=== PATIENT | female | born 1935 | race Caucasian/White ===

== ENCOUNTER 2017-06-09 12:55 | Inpatient (IN) | payer MEDICARE, BC ==
[~2017-06-09] VITALS: Ht 147 cm; Wt 70.3 kg
[~2017-06-09 12:55] MED LIST: ACETAMINOPHEN-H1 TA2 PO; ASPIRIN81 M1 PO; CIPRO500 MG PO; CO Q-1010 MG PO; CRESTOR5 MG PO; DIOVAN80 M1 PO; DOXYCYCLINE100 M3 PO; FISH OIL PO; FOLIC ACID0.8 MG PO; MACROBID100 M1 PO; NIACIN PO; PREDNICOT10 MG PO; PYRIDIUM200 MG PO; SYNTHROID,LEVO75 MCG PO; ZETIA10 MG PO; Zofran4 MG PO; [UNRECOGNIZED DRUG - CODE] PO; [UNRECOGNIZED DRUG - OTHER] PO
[2017-06-09 12:58] VITALS: BP 132/65
[2017-06-09 14:00] LABS: BASO % 0.7 % (0.0-1.0); EOS # 0.1 10*3/uL (0.0-0.4); EOS % 1.8 % (1.0-4.0); HEMATOCRIT 40.7 % (37.0-47.0); HEMOGLOBIN 13.7 g/dl (12.0-16.0); LYMPH # 1.4 10*3/uL (1.3-4.4); LYMPH % 22.6 % (27.0-41.0); MEAN CELL VOLUME 92.9 fl (81.0-99.0); MEAN CORPUSCULAR HGB 31.3 pg (27.0-31.0); MEAN CORPUSCULAR HGB CONC 33.7 g/dl (33.0-37.0); MONO # 0.6 10*3/uL (0.1-1.0); MONO % 10.4 % (3.0-9.0); NEUT # 3.9 10*3/uL (2.3-7.9); NEUT % 64.3 % (47.0-73.0); PLATELET COUNT AUTOMATED 177 10*3/uL (130-400); RED BLOOD COUNT 4.38 10*6/uL (4.10-5.10); RED CELL DISTRI WIDTH 12.4 % (0-14.5); WHITE BLOOD COUNT 6.1 10*3/uL (4.8-10.8)
[2017-06-09 14:15] LABS: ACT PARTIAL THROMBO TIME 22.5 SECONDS (20.8-31.5); ALBUMIN 3.6 gm/dl (3.1-4.5); ALKALINE PHOSPHATASE 76 U/L (45-117); BUN 12 mg/dl (7-24); CHLORIDE 107 mmol/L (98-107); CREATININE 1.03 mg/dL (0.55-1.02); LIPASE 143 U/L (73-393); SGOT/AST 19 IU/L (3-35); SGPT/ALT 18 U/L (12-78); SODIUM 138 mmol/L (136-145); TOTAL PROTEIN 7.4 gm/dL (6.4-8.2); TROPONIN I 0.017 ng/ml (<0.045)
[2017-06-09 15:15] VITALS: BP 128/72
[2017-06-09 16:48] VITALS: BP 142/60
[2017-06-09 20:00] VITALS: BP 111/57
[2017-06-09 23:59] VITALS: BP 91/36
[2017-06-10 07:49] LABS: ALBUMIN 3.4 gm/dl (3.1-4.5); CREATININE 1.21 mg/dL (0.55-1.02); PHOSPHOROUS 2.8 mg/dL (2.5-4.9); POTASSIUM 4.1 mmol/L (3.5-5.1); TOTAL PROTEIN 7.4 gm/dL (6.4-8.2)
[2017-06-10 07:55] LABS: FREE T4 1.38 ng/dl (0.76-1.46); THYROID STIM HORMONE (HS) 0.006 uIU/ml (0.358-4.75)
[2017-06-10 08:00] VITALS: BP 127/74
[2017-06-10 08:04] LABS: BASO % 0.2 % (0.0-1.0); HEMATOCRIT 41.4 % (37.0-47.0); HEMOGLOBIN 13.8 g/dl (12.0-16.0); LYMPH % 20.1 % (27.0-41.0); MEAN CELL VOLUME 93.5 fl (81.0-99.0); MEAN CORPUSCULAR HGB 31.2 pg (27.0-31.0); MEAN CORPUSCULAR HGB CONC 33.3 g/dl (33.0-37.0); MEAN PLATELET VOLUME 10.1 fl (9.6-12.3); MONO # 0.3 10*3/uL (0.1-1.0); MONO % 5.2 % (3.0-9.0); NEUT # 3.8 10*3/uL (2.3-7.9); NEUT % 73.9 % (47.0-73.0); PLATELET COUNT AUTOMATED 179 10*3/uL (130-400); RED BLOOD COUNT 4.43 10*6/uL (4.10-5.10); RED CELL DISTRI WIDTH 12.5 % (0-14.5); WHITE BLOOD COUNT 5.2 10*3/uL (4.8-10.8)
[2017-06-10 12:00] VITALS: BP 98/54
[2017-06-10 16:00] VITALS: BP 95/70
[2017-06-10 20:00] VITALS: BP 100/49; BP 100/69
[2017-06-11] VITALS: BP 115/54
[2017-06-11 07:22] LABS: ALBUMIN 3.2 gm/dl (3.1-4.5); CREATININE 1.09 mg/dL (0.55-1.02); POTASSIUM 3.8 mmol/L (3.5-5.1)
[2017-06-11 07:24] LABS: PHOSPHOROUS 2.7 mg/dL (2.5-4.9)
[2017-06-11 08:00] VITALS: BP 149/68
[2017-06-11] MEDS ORDERED: Synthroid,Levo50 MCG PO (10:37)
[2017-06-11] MEDS ORDERED: MEDROL DOSEPAK4 MG PO (10:39)
== END 2017-06-11 11:18 | disposition home or self-care (01) | DRG 202 ==
LOC: ED 12:55 → 4E 15:23 → EDHOLD 15:23 → 4E 15:51
PROVIDERS: Emergency Medicine; Registered Nurse
DX: J45.901 Unspecified asthma with (acute) exacerbation (principal); N17.0 Acute kidney failure with tubular necrosis; E83.41 Hypermagnesemia; N30.10 Interstitial cystitis (chronic) without hematuria; K21.9 Gastro-esophageal reflux disease without esophagitis; K58.9 Irritable bowel syndrome, unspecified; I10 Essential (primary) hypertension; Z66 Do not resuscitate; Z51.5 Encounter for palliative care; E78.00 Pure hypercholesterolemia, unspecified; K44.9 Diaphragmatic hernia without obstruction or gangrene; E03.9 Hypothyroidism, unspecified; I25.10 Atherosclerotic heart disease of native coronary artery without angina pectoris; Z88.8 Allergy status to other drugs, medicaments and biological substances; Z88.6 Allergy status to analgesic agent; Z88.1 Allergy status to other antibiotic agents; I25.2 Old myocardial infarction; Z90.710 Acquired absence of both cervix and uterus; Z90.49 Acquired absence of other specified parts of digestive tract; Z95.5 Presence of coronary angioplasty implant and graft

== ENCOUNTER → 2018-06-09 | Outpatient (CLI) | payer MEDICARE, BC ==
[~2018-06-09] MED LIST changes: +MEDROL DOSEPAK4 MG PO; +Synthroid,Levo50 MCG PO
== END | disposition home or self-care (01) ==
LOC: US 12:34
DX: I65.23 Occlusion and stenosis of bilateral carotid arteries (principal)

== ENCOUNTER 2020-02-21 13:12 | Emergency (ER) | payer MEDICARE, BC ==
[~2020-02-21] VITALS: Wt 70.3 kg
[2020-02-21 15:52] LABS: BASO # 0.1 10*3/uL (0.0-0.1); BASO % 0.6 % (0.0-1.0); EOS # 0.3 10*3/uL (0.0-0.4); EOS % 3.2 % (1.0-4.0); HEMATOCRIT 45.6 % (37.0-47.0); MEAN CELL VOLUME 91.9 fl (81.0-99.0); MEAN CORPUSCULAR HGB 30.4 pg (27.0-31.0); MEAN CORPUSCULAR HGB CONC 33.1 g/dl (33.0-37.0); MEAN PLATELET VOLUME 10.1 fl (9.6-12.3); MONO # 0.5 10*3/uL (0.1-1.0); MONO % 6.3 % (3.0-9.0); NEUT # 5.7 10*3/uL (2.3-7.9); NEUT % 66.7 % (47.0-73.0); PLATELET COUNT AUTOMATED 233 10*3/uL (130-400); RED BLOOD COUNT 4.96 10*6/uL (4.10-5.10); WHITE BLOOD COUNT 8.5 10*3/uL (4.8-10.8)
[2020-02-21 16:07] LABS: ALBUMIN 3.8 gm/dl (3.1-4.5); ALKALINE PHOSPHATASE 73 U/L (45-117); BUN 11 mg/dl (7-24); CHLORIDE 109 mmol/L (98-107); CREATININE 0.77 mg/dL (0.55-1.02); POTASSIUM 3.7 mmol/L (3.5-5.1); SGOT/AST 26 IU/L (3-35); SGPT/ALT 13 U/L (12-78); SODIUM 141 mmol/L (136-145); TOTAL PROTEIN 7.6 gm/dL (6.4-8.2)
[2020-02-21] MEDS ORDERED: CLONIDINE HCL0.1 MG PO (18:26)
[2020-02-21] MEDS ORDERED: AMOXICILLIN500 M2 PO (18:29)
[2020-02-21] MEDS ORDERED: KEFLEX500 M1 PO (18:34)
[2020-02-21] MEDS ORDERED: DIFLUCAN150 MG PO (18:34)
== END 2020-02-21 18:29 | disposition home or self-care (01) ==
LOC: ED 13:12
PROVIDERS: Emergency Medicine
DX: J32.9 Chronic sinusitis, unspecified (principal); I10 Essential (primary) hypertension; I25.2 Old myocardial infarction; E78.00 Pure hypercholesterolemia, unspecified; Z88.8 Allergy status to other drugs, medicaments and biological substances; Z79.2 Long term (current) use of antibiotics; Z79.899 Other long term (current) drug therapy; Z79.82 Long term (current) use of aspirin; Z90.49 Acquired absence of other specified parts of digestive tract

== ENCOUNTER 2020-02-29 11:05 | Emergency (ER) | payer MEDICARE, BC ==
[~2020-02-29] VITALS: Wt 68.0 kg
[~2020-02-29 11:05] MED LIST changes: +AMOXICILLIN500 M2 PO; +CLONIDINE HCL0.1 MG PO; +DIFLUCAN150 MG PO; +KEFLEX500 M1 PO
[2020-02-29 14:43] LABS: BASO # 0.1 10*3/uL (0.0-0.1); BASO % 0.6 % (0.0-1.0); EOS # 0.3 10*3/uL (0.0-0.4); EOS % 3.6 % (1.0-4.0); HEMATOCRIT 44.6 % (37.0-47.0); LYMPH # 2.2 10*3/uL (1.3-4.4); LYMPH % 27.6 % (27.0-41.0); MEAN CELL VOLUME 93.9 fl (81.0-99.0); MEAN CORPUSCULAR HGB 30.5 pg (27.0-31.0); MEAN CORPUSCULAR HGB CONC 32.5 g/dl (33.0-37.0); MEAN PLATELET VOLUME 9.9 fl (9.6-12.3); MONO # 0.6 10*3/uL (0.1-1.0); MONO % 6.8 % (3.0-9.0); NEUT # 4.9 10*3/uL (2.3-7.9); NEUT % 61.2 % (47.0-73.0); PLATELET COUNT AUTOMATED 238 10*3/uL (130-400); RED BLOOD COUNT 4.75 10*6/uL (4.10-5.10); RED CELL DISTRI WIDTH 12.4 % (0-14.5)
[2020-02-29 14:54] LABS: ACT PARTIAL THROMBO TIME 25.6 SECONDS (20.0-32.1)
[2020-02-29 15:23] LABS: ALBUMIN 3.7 gm/dl (3.1-4.5); ALKALINE PHOSPHATASE 66 U/L (45-117); BUN 10 mg/dl (7-24); CHLORIDE 111 mmol/L (98-107); CREATININE 0.83 mg/dL (0.55-1.02); LIPASE 103 U/L (73-393); POTASSIUM 3.8 mmol/L (3.5-5.1); SGOT/AST 20 IU/L (3-35); SGPT/ALT 14 U/L (12-78); SODIUM 142 mmol/L (136-145); TOTAL PROTEIN 7.4 gm/dL (6.4-8.2)
[2020-02-29 15:28] LABS: TROPONIN I < 0.015 ng/ml (<0.045)
[2020-02-29] MEDS ORDERED: ZITHROMAX250 MG PO (17:38)
== END 2020-02-29 17:53 | disposition home or self-care (01) ==
LOC: ED 11:05
PROVIDERS: Emergency Medicine
DX: J01.90 Acute sinusitis, unspecified (principal); R51.9 Headache, unspecified; Z88.8 Allergy status to other drugs, medicaments and biological substances; Z79.899 Other long term (current) drug therapy

== ENCOUNTER → 2021-03-18 | Outpatient (CLI) | payer MEDICARE, BC ==
[~2021-03-18] MED LIST changes: +ZITHROMAX250 MG PO
== END | disposition home or self-care (01) ==
LOC: US 13:44
PROVIDERS: ATTEND Nurse Practitioner Primary Care
DX: N28.89 Other specified disorders of kidney and ureter (principal); M54.50 Low back pain, unspecified; R35.0 Frequency of micturition; R10.9 Unspecified abdominal pain

== ENCOUNTER → 2021-03-31 | Outpatient (CLI) | payer MEDICARE, BC | END | disposition home or self-care (01) | LOC: CT 13:50 | PROVIDERS: ATTEND Nurse Practitioner Primary Care | DX: K57.30 Diverticulosis of large intestine without perforation or abscess without bleeding (principal); J84.10 Pulmonary fibrosis, unspecified; I25.10 Atherosclerotic heart disease of native coronary artery without angina pectoris ==

== ENCOUNTER 2023-04-07 10:26 | Emergency (ER) | payer MEDICARE, BC ==
[~2023-04-07] VITALS: Ht 147.3 cm; Wt 64.0 kg
[2023-04-07 11:58] LABS: BASO % 0.4 % (0.0-1.0); LYMPH # 0.4 10*3/uL (1.3-4.4); LYMPH % 7.7 % (27.0-41.0); MEAN CELL VOLUME 93.2 fl (81.0-99.0); MEAN CORPUSCULAR HGB 31.6 pg (27.0-31.0); MEAN CORPUSCULAR HGB CONC 33.9 g/dl (33.0-37.0); MEAN PLATELET VOLUME 9.4 fl (9.6-12.3); MONO # 0.8 10*3/uL (0.1-1.0); MONO % 15.9 % (3.0-9.0); NEUT # 3.8 10*3/uL (2.3-7.9); NEUT % 75.6 % (47.0-73.0); PLATELET COUNT AUTOMATED 194 10*3/uL (130-400); RED BLOOD COUNT 4.72 10*6/uL (4.10-5.10); RED CELL DISTRI WIDTH 11.9 % (0-14.5); WHITE BLOOD COUNT 5.1 10*3/uL (4.8-10.8)
[2023-04-07 12:07] LABS: ACT PARTIAL THROMBO TIME 28.8 SECONDS (20.0-32.1)
[2023-04-07 12:20] LABS: BILIRUBIN Negative (Negative); BLOOD 1+ (Negative); CLARITY Clear (Clear); COLOR Yellow (Yellow); GLUCOSE Negative (Negative); KETONE Trace (Negative); LEUKO ESTERASE 1+ (Negative); NITRITE Negative (Negative); PH 5.5 (4.5-8.0)
[2023-04-07 12:22] LABS: ALKALINE PHOSPHATASE 65 U/L (46-116); BUN 11 mg/dl (9-23); CHLORIDE 103 mmol/L (98-107); LIPASE 31 U/L (12-53); POTASSIUM 3.4 mmol/L (3.4-5.1)
[2023-04-07 12:24] LABS: SGPT/ALT < 7 U/L (5-49)
[2023-04-07 12:29] LABS: BACTERIA 1+
[2023-04-07] MEDS ORDERED: CIPRO500 MG PO (12:44)
== END 2023-04-07 11:25 | disposition home or self-care (01) ==
LOC: ED 10:26
PROVIDERS: Physician Assistant Medical
DX: J10.1 Influenza due to other identified influenza virus with other respiratory manifestations (principal); N39.0 Urinary tract infection, site not specified; R11.2 Nausea with vomiting, unspecified; R19.7 Diarrhea, unspecified; I25.2 Old myocardial infarction; E78.00 Pure hypercholesterolemia, unspecified; I10 Essential (primary) hypertension; Z88.8 Allergy status to other drugs, medicaments and biological substances; Z88.6 Allergy status to analgesic agent; Z90.49 Acquired absence of other specified parts of digestive tract; Z90.710 Acquired absence of both cervix and uterus; Z90.89 Acquired absence of other organs; Z98.890 Other specified postprocedural states; Z20.822 Contact with and (suspected) exposure to COVID-19; R10.2 Pelvic and perineal pain

== ENCOUNTER 2023-04-15 17:01 | Inpatient (IN) | payer MEDICARE, BC ==
[~2023-04-15] VITALS: Ht 149.9 cm; Wt 61.7 kg
[2023-04-15 18:02] VITALS: BP 102/79
[2023-04-15 20:12] LABS: BASO % 0.2 % (0.0-1.0); HEMATOCRIT 46.1 % (37.0-47.0); LYMPH # 0.8 10*3/uL (1.3-4.4); LYMPH % 6.4 % (27.0-41.0); MEAN CELL VOLUME 88.3 fl (81.0-99.0); MEAN CORPUSCULAR HGB CONC 35.1 g/dl (33.0-37.0); MEAN PLATELET VOLUME 10.9 fl (9.6-12.3); MONO # 0.5 10*3/uL (0.1-1.0); MONO % 4.2 % (3.0-9.0); NEUT # 10.9 10*3/uL (2.3-7.9); NEUT % 88.6 % (47.0-73.0); PLATELET COUNT AUTOMATED 204 10*3/uL (130-400); RED BLOOD COUNT 5.22 10*6/uL (4.10-5.10); RED CELL DISTRI WIDTH 11.9 % (0-14.5); WHITE BLOOD COUNT 12.3 10*3/uL (4.8-10.8)
[2023-04-15 20:19] LABS: BILIRUBIN Negative (Negative); BLOOD Negative (Negative); CLARITY Clear (Clear); COLOR Dark Yellow (Yellow); GLUCOSE Negative (Negative); KETONE Trace (Negative); LEUKO ESTERASE 1+ (Negative); NITRITE Negative (Negative); PH 5.5 (4.5-8.0)
[2023-04-15 20:25] LABS: ACT PARTIAL THROMBO TIME 25.2 SECONDS (20.0-32.1)
[2023-04-15 20:29] LABS: BACTERIA 3+; EPITHELIAL CELLS 16-20; WBC 31-40 wbc/hpf (0-5)
[2023-04-15 20:30] LABS: POTASSIUM 2.9 mmol/L (3.4-5.1); TOTAL PROTEIN 7.5 gm/dL (6.0-8.0)
[2023-04-16] VITALS (7 sets, daily range): BP systolic 98–144; BP diastolic 50–79
[2023-04-16 06:12] LABS: HEMATOCRIT 38.8 % (37.0-47.0); MEAN CELL VOLUME 89.8 fl (81.0-99.0); MEAN CORPUSCULAR HGB 31.7 pg (27.0-31.0); MEAN CORPUSCULAR HGB CONC 35.3 g/dl (33.0-37.0); MEAN PLATELET VOLUME 10.7 fl (9.6-12.3); PLATELET COUNT AUTOMATED 162 10*3/uL (130-400); RED BLOOD COUNT 4.32 10*6/uL (4.10-5.10); RED CELL DISTRI WIDTH 11.8 % (0-14.5); WHITE BLOOD COUNT 14.7 10*3/uL (4.8-10.8)
[2023-04-16 06:13] LABS: MANUAL DIFF REFLEX YES
[2023-04-16 06:22] LABS: ALKALINE PHOSPHATASE 57 U/L (46-116); BUN 8 mg/dl (9-23); CHLORIDE 107 mmol/L (98-107); CHOLESTEROL 79 mg/dL (<200); FREE T4 0.77 ng/dl (0.89-1.76); LDL CHOLESTEROL 34 mg/dL (9-159); POTASSIUM 3.2 mmol/L (3.4-5.1); SGPT/ALT 15 U/L (5-49); TOTAL PROTEIN 5.8 gm/dL (6.0-8.0); TRIGLYCERIDES 90 mg/dl (<150)
[2023-04-16 07:19] LABS: TOTAL CELLS COUNTED 100 #CELLS
[2023-04-16 07:20] LABS: PLATELET SUFFICIENCY NORMAL (NORMAL)
[2023-04-16 08:57] LABS: VITAMIN D, 25-HYDROXY 46.8 ng/mL (30-100)
[2023-04-16] MEDS ORDERED: CLOPIDOGREL75 MG PO (11:20)
[2023-04-16] MEDS ORDERED: LEVOTHYROXINE75 MC1 PO (11:20)
[2023-04-16] MEDS ORDERED: AMLODIPINE BESYL5 MG PO (11:21)
[2023-04-16] MEDS ORDERED: LASIX20 MG PO (11:21)
[2023-04-16] MEDS ORDERED: LOSARTAN POTAS100 M1 PO (11:21)
[2023-04-16] MEDS ORDERED: PRALUENT P75 MG/1 ML SQ (11:24)
[2023-04-16] MEDS ORDERED: GOOD SENSE ASPI81 M1 PO (23:23)
[2023-04-16] MEDS ORDERED: SYNTHROID,LEVO75 MCG PO (23:25)
[2023-04-17 06:50] LABS: BASO % 0.3 % (0.0-1.0); EOS % 0.4 % (1.0-4.0); HEMATOCRIT 40.4 % (37.0-47.0); LYMPH # 1.6 10*3/uL (1.3-4.4); LYMPH % 22.1 % (27.0-41.0); MEAN CELL VOLUME 89.6 fl (81.0-99.0); MEAN CORPUSCULAR HGB 30.8 pg (27.0-31.0); MEAN CORPUSCULAR HGB CONC 34.4 g/dl (33.0-37.0); MEAN PLATELET VOLUME 10.3 fl (9.6-12.3); MONO # 0.5 10*3/uL (0.1-1.0); MONO % 6.8 % (3.0-9.0); NEUT % 69.8 % (47.0-73.0); PLATELET COUNT AUTOMATED 192 10*3/uL (130-400); RED BLOOD COUNT 4.51 10*6/uL (4.10-5.10); RED CELL DISTRI WIDTH 11.9 % (0-14.5); WHITE BLOOD COUNT 7.2 10*3/uL (4.8-10.8)
[2023-04-17 07:13] LABS: ALKALINE PHOSPHATASE 55 U/L (46-116); BUN 9 mg/dl (9-23); CHLORIDE 107 mmol/L (98-107); POTASSIUM 2.5 mmol/L (3.4-5.1); SGPT/ALT 11 U/L (5-49); TOTAL PROTEIN 5.7 gm/dL (6.0-8.0)
[2023-04-17 08:00] VITALS: BP 112/51
[2023-04-17 17:17] VITALS: BP 96/47
[2023-04-17 20:00] VITALS: BP 124/70
[2023-04-18] VITALS: BP 149/70
[2023-04-18 08:15] LABS: BASO % 0.3 % (0.0-1.0); EOS # 0.1 10*3/uL (0.0-0.4); EOS % 0.7 % (1.0-4.0); HEMATOCRIT 38.6 % (37.0-47.0); LYMPH # 1.6 10*3/uL (1.3-4.4); MEAN CELL VOLUME 90.6 fl (81.0-99.0); MEAN CORPUSCULAR HGB CONC 34.2 g/dl (33.0-37.0); MEAN PLATELET VOLUME 10.1 fl (9.6-12.3); MONO # 0.5 10*3/uL (0.1-1.0); MONO % 7.6 % (3.0-9.0); NEUT # 4.6 10*3/uL (2.3-7.9); NEUT % 67.8 % (47.0-73.0); PLATELET COUNT AUTOMATED 221 10*3/uL (130-400); RED BLOOD COUNT 4.26 10*6/uL (4.10-5.10); WHITE BLOOD COUNT 6.8 10*3/uL (4.8-10.8)
[2023-04-18 08:38] LABS: BUN 6 mg/dl (9-23); CHLORIDE 106 mmol/L (98-107); POTASSIUM 2.6 mmol/L (3.4-5.1)
[2023-04-18 12:00] VITALS: BP 100/42
[2023-04-18 12:33] LABS: BUN 6 mg/dl (9-23); CHLORIDE 106 mmol/L (98-107); POTASSIUM 2.7 mmol/L (3.4-5.1)
[2023-04-18 14:55] LABS: BUN 6 mg/dl (9-23); CHLORIDE 106 mmol/L (98-107); POTASSIUM 3.1 mmol/L (3.4-5.1)
[2023-04-18] MEDS ORDERED: LOSARTAN POTASS25 M1 PO (15:26)
[2023-04-18] MEDS ORDERED: POTASSIUM20 MEQ/16 PO (15:26)
[2023-04-18] MEDS ORDERED: ZITHROMAX250 MG PO (15:26)
[2023-04-18 16:00] VITALS: BP 143/76
== END 2023-04-18 16:35 | disposition home or self-care (01) | DRG 871 ==
LOC: ED 17:01 → EDHOLD 23:44 → 4E 04-16 21:44 → 5E 04-17 12:31
PROVIDERS: Family Medicine; Internal Medicine; Student in an Organized Health Care Education/Training Program; ADMIT Internal Medicine; ATTEND Internal Medicine
DX: A41.9 Sepsis, unspecified organism (principal); J18.9 Pneumonia, unspecified organism; N17.0 Acute kidney failure with tubular necrosis; J93.9 Pneumothorax, unspecified; N39.0 Urinary tract infection, site not specified; E87.20 Acidosis, unspecified; R65.20 Severe sepsis without septic shock; I25.10 Atherosclerotic heart disease of native coronary artery without angina pectoris; I10 Essential (primary) hypertension; K21.9 Gastro-esophageal reflux disease without esophagitis; M06.9 Rheumatoid arthritis, unspecified; E03.9 Hypothyroidism, unspecified; R73.9 Hyperglycemia, unspecified; J45.909 Unspecified asthma, uncomplicated; K76.0 Fatty (change of) liver, not elsewhere classified; D75.1 Secondary polycythemia; E87.6 Hypokalemia; K58.9 Irritable bowel syndrome, unspecified; K57.30 Diverticulosis of large intestine without perforation or abscess without bleeding; Z88.8 Allergy status to other drugs, medicaments and biological substances; Z90.49 Acquired absence of other specified parts of digestive tract; Z90.710 Acquired absence of both cervix and uterus; Z95.5 Presence of coronary angioplasty implant and graft; Z80.1 Family history of malignant neoplasm of trachea, bronchus and lung; I25.2 Old myocardial infarction